=== PATIENT | female | born 1940 | race Caucasian/White ===

== ENCOUNTER 2019-06-06 12:55 | Outpatient (CLI) | payer MEDICARE, OTHER, SELFPAY ==
[2019-06-06 13:19] VITALS: BP 124/75; PULSE 73; RESP 16; TEMP 36.5; O2SAT 97
[2019-06-06] MEDS: denosumab 60 mg SDV SUBCUT (13:19)
[2019-06-06 13:21] VITALS: BP 141/75; PULSE 75; RESP 16; TEMP 36.6
== END 2019-06-06 12:56 | disposition home or self-care (01) ==
LOC: RHEOACUTE 12:58
PROVIDERS: Family Provider Nurse Practitioner Family; Visit Provider Internal Medicine Rheumatology
DX: M81.0 Age-related osteoporosis without current pathological fracture (principal)
CPT/HCPCS: 96372; J0897

== ENCOUNTER 2019-07-11 15:31 | Outpatient (CLI) | payer MEDICARE, OTHER, SELFPAY ==
--- NOTE | 2019-07-11 15:41 | CT_ITS ---
WS: [id number] CT NECK TECHNIQUE: Contrast-enhanced CT of the neck with coronal and sagittal reformatted images. CLINICAL INFORMATION: CHRONIC SORE THROAT COMPARISON: None. DLP: 1094.[address] scans at [facility] use at least one of these dose optimization techniques: automat ed exposure control; mA and/or kV adjustment per patient size (includes targeted exams where dose is matched to clinical indication); or iterative reconstruction. FINDINGS: Images degraded by extensive dental artifact. Submandibular glands are normal. Normal parotid glands. Normal parapharyngeal fat. Tongue base appears normal where visualized. No evidence of supraglottic or glottic mass. Normal piriform sinuses. Subglottic airway is patent. Emphysematous changes in the l rosita apices. Unremarkable thyroid gland. Parathyroid surgical clips. No cervical lymphadenopathy. Mild mucosal thickening right mastoid tip. Paranasal sinuses are well ae rated. Slight anterolisthesis C3 on C4. Moderate spondylitic changes cervical spine. CT/CT neck w con* [id number] IMPRESSION: 1. Salivary glands are normal. 2. No cervical lymphadenopathy. 3. No evidence of supraglottic or glottic mass. 4. Prior parathyroid surgical clips. 5. Mild mucosal thickening right mastoid tip. 6. Images degraded at the tongue base due to extensive dental artifact. 7. Moderate spondylitic changes cervical spine.
[2019-07-11] MEDS: iohexol 300 mg/mL 100 mL Btl IV (16:15)
[2019-07-11 16:25] LABS: Blood Urea Nitrogen 17 mg/dL (8-23)
== END 2019-07-11 15:32 | disposition home or self-care (01) ==
LOC: RADWPI 15:38
PROVIDERS: Family Provider Nurse Practitioner Family; PCP Nurse Practitioner; Visit Provider Specialist
DX: J31.2 Chronic pharyngitis (principal); M47.892 Other spondylosis, cervical region
CPT/HCPCS: 70491; 82565; 84520; Q9967

== ENCOUNTER → 2019-09-03 14:12 | Outpatient (BNVA) | payer MEDICARE, OTHER, SELFPAY | PROVIDERS: Family Provider Nurse Practitioner Family; Visit Provider Specialist | DX: G31.83 Neurocognitive disorder with Lewy bodies (principal); F02.80 Dementia in other diseases classified elsewhere, unspecified severity, without behavioral disturbance, psychotic disturbance, mood disturbance, and anxiety; Z87.891 Personal history of nicotine dependence | CPT/HCPCS: 96116; 99214 ==

== ENCOUNTER 2020-01-08 14:52 | Outpatient (CLI) | payer MEDICARE, OTHER, SELFPAY ==
--- NOTE | 2020-01-08 15:00 | XR_ITS ---
WS: [id number] SCREENING DEXA SCAN [place] CLINICAL INFORMATION: AGE-RELATED OSTEOPOROSIS WITHOUT CURRENT PATHOLOGICAL FRACTU COMPARISON: January 16, 2019 FINDINGS: The L1-L4 bone mineral density measures 0.845 g/cm2. This corresponds to a T score score of -2.8 and Z score of -0.7. Left femoral neck bone mineral density measures 0.721 g/cm2. This corresponds to a T score of -2.3 an d Z score of -0.1. Right femoral neck bone mineral density measures 0.730 g/cm2. This corresponds to a T score -2.2of an d Z score of 0.0. Mean femoral neck bone mineral density measures 0.725 g/cm2. This corresponds to a T score of -2.2 an d Z score of 0.0. XR/XR DEXA axial skeleton* 40340 IMPRESSION: Osteoporosis Patient's FRAX calculated 10 year probability for major osteoporotic fracture i s 22.2 % and osteoporotic hip fracture is 6.7%.
== END 2020-01-08 14:53 | disposition home or self-care (01) ==
LOC: RADWPI 14:57
PROVIDERS: Family Provider Nurse Practitioner Family; PCP Nurse Practitioner; Visit Provider Nurse Practitioner
DX: M81.0 Age-related osteoporosis without current pathological fracture (principal)
CPT/HCPCS: 77080

== ENCOUNTER → 2021-03-01 08:55 | Outpatient (BNVA) | payer MEDICARE, OTHER, SELFPAY | PROVIDERS: Family Provider Nurse Practitioner Family; PCP Nurse Practitioner; Visit Provider Internal Medicine | DX: Z79.899 Other long term (current) drug therapy (principal); M81.0 Age-related osteoporosis without current pathological fracture | CPT/HCPCS: 36415; 80053; 82306; 85025; 85651; 86140 ==

== ENCOUNTER → 2021-03-08 10:31 | Outpatient (BNVA) | payer MEDICARE, OTHER, SELFPAY | PROVIDERS: Family Provider Nurse Practitioner Family; PCP Nurse Practitioner; Visit Provider Internal Medicine | DX: M81.0 Age-related osteoporosis without current pathological fracture (principal) | CPT/HCPCS: 99214 ==

== ENCOUNTER 2021-03-22 12:24 | Outpatient (CLI) | payer MEDICARE, OTHER, SELFPAY ==
[2021-03-22 12:56] VITALS: BP 144/88; PULSE 98; RESP 18; TEMP 36.5; O2SAT 97
[2021-03-22] MEDS: denosumab 60 mg SDV SUBCUT (13:03)
[2021-03-22 13:08] VITALS: BP 131/81; PULSE 89; RESP 18; TEMP 36.4; O2SAT 97
== END 2021-03-22 12:25 | disposition home or self-care (01) ==
PROVIDERS: PCP Nurse Practitioner; Referring Provider Internal Medicine; Visit Provider Internal Medicine
DX: M81.0 Age-related osteoporosis without current pathological fracture (principal)
CPT/HCPCS: 96372; J0897

== ENCOUNTER 2021-07-05 06:00 | Outpatient (RCR) | payer MEDICARE, OTHER, SELFPAY | END 2021-07-05 23:59 | disposition home or self-care (01) | LOC: GPT 06:00 | PROVIDERS: PCP Nurse Practitioner; Referring Provider Nurse Practitioner; Visit Provider Nurse Practitioner | DX: R29.6 Repeated falls (principal); R09.02 Hypoxemia | CPT/HCPCS: 97110; 97162 ==

== ENCOUNTER 2021-07-06 06:00 | Outpatient (RCR) | payer MEDICARE, OTHER, SELFPAY | END 2021-08-05 23:59 | disposition home or self-care (01) | LOC: GPT 06:00 | PROVIDERS: PCP Nurse Practitioner; Referring Provider Nurse Practitioner; Visit Provider Nurse Practitioner | DX: M62.81 Muscle weakness (generalized) (principal) | CPT/HCPCS: 97110 ==

== ENCOUNTER 2021-08-06 06:00 | Outpatient (RCR) | payer MEDICARE, OTHER, SELFPAY | END 2021-09-04 23:59 | disposition home or self-care (01) | LOC: GPT 06:00 | PROVIDERS: PCP Nurse Practitioner; Referring Provider Nurse Practitioner; Visit Provider Nurse Practitioner | DX: M62.81 Muscle weakness (generalized) (principal); R29.6 Repeated falls; R09.02 Hypoxemia | CPT/HCPCS: 97110; 97112 ==

== ENCOUNTER 2021-09-05 | Outpatient (RCR) | payer MEDICARE, OTHER, SELFPAY | END 2021-10-05 23:59 | disposition home or self-care (01) | LOC: GPT | PROVIDERS: PCP Nurse Practitioner; Referring Provider Nurse Practitioner; Visit Provider Nurse Practitioner | DX: M62.81 Muscle weakness (generalized) (principal); R29.6 Repeated falls; R09.02 Hypoxemia | CPT/HCPCS: 97110; 97112; 97530 ==

== ENCOUNTER 2021-09-23 06:00 | Outpatient (RCR) | payer MEDICARE, OTHER, SELFPAY | END 2021-10-05 23:59 | disposition home or self-care (01) | LOC: GST 06:00 | PROVIDERS: PCP Nurse Practitioner; Referring Provider Nurse Practitioner; Visit Provider Nurse Practitioner | DX: R13.10 Dysphagia, unspecified (principal) | CPT/HCPCS: 92526; 92610 ==

== ENCOUNTER 2021-10-06 06:00 | Outpatient (RCR) | payer MEDICARE, OTHER, SELFPAY | END 2021-11-04 23:59 | disposition home or self-care (01) | LOC: GST 06:00 | PROVIDERS: PCP Nurse Practitioner; Referring Provider Nurse Practitioner; Visit Provider Nurse Practitioner | DX: R13.10 Dysphagia, unspecified (principal) | CPT/HCPCS: 92526 ==

== ENCOUNTER 2021-10-06 06:00 | Outpatient (RCR) | payer MEDICARE, OTHER, SELFPAY | END 2021-11-04 23:59 | disposition home or self-care (01) | LOC: GPT 06:00 | PROVIDERS: PCP Nurse Practitioner; Referring Provider Nurse Practitioner; Visit Provider Nurse Practitioner | DX: R29.6 Repeated falls (principal); R09.02 Hypoxemia | CPT/HCPCS: 97110; 97112 ==

== ENCOUNTER 2021-10-13 13:08 | Outpatient (CLI) | payer MEDICARE, OTHER, SELFPAY ==
[2021-10-13 13:44] LABS: Erythrocyte Sedimentation Rate 22 mm/hr (0-15)
[2021-10-13 13:46] LABS: Basophils # 0.1 10^3/uL (0.0-0.1); Basophils % 0.8 %; Eosinophils # 0.4 10^3/uL (0.0-0.8); Eosinophils % 5.5 %; Hematocrit 46.4 % (37.0-47.0); Hemoglobin 15.8 g/dL (11.5-15.3); Lymphocytes # 1.6 10^3/uL (0.8-4.8); Lymphocytes % 23.1 %; Mean Corpuscular HGB Conc 34.1 g/dL (30.0-36.0); Mean Corpuscular Hemoglobin 32.4 pg (28.0-34.0); Mean Corpuscular Volume 95.1 fl (81-99); Monocytes # 0.7 10^3/uL (0.2-0.9); Monocytes % 10.1 %; Neutrophils # 4.25 10^3/uL (1.8-7.7); Neutrophils % 59.9 %; Nucleated Red Blood Cells % 0 %; Platelet Count 349 10^3/cmm (130-400); Red Blood Count 4.88 10^6/uL (4.1-5.3); Red Cell Distribution Width 12.8 % (12.1-15.1); White Blood Count 7.1 10^3/uL (4.0-10.0)
[2021-10-13 14:13] LABS: Alanine Aminotransferase 33 U/L (0-33); Albumin Level 4.4 g/dL (3.5-5.2); Alkaline Phosphatase 127 IU/L (35-105); Aspartate Amino Transferase 30 U/L (0-32); Blood Urea Nitrogen 18 mg/dL (8-23); C Reactive Protein 8.5 mg/L (0.0-4.9); Calcium 9.5 mg/dL (8.5-10.5); Carbon Dioxide 22 mmol/L (22-29); Chloride 100 mmol/L (98-107); Globulin 2.8 g/dL (1.3-4.6); Glucose 93 mg/dL (65-115); Osmolality Calculated 282 mOsm/kg (285-295); Sodium 135 mmol/L (136-145); Total Bilirubin 0.2 mg/dL (0.15-1.2); Total Protein 7.2 g/dL (6.6-8.7)
[2021-10-13 14:14] LABS: Anion Gap 17.2 (5-19); Potassium 4.2 mmol/L (3.5-5.1)
[2021-10-13 14:28] LABS: 25 Hydroxy Vitamin D 41 ng/mL (30-100)
[2021-10-13 14:33] VITALS: BP 136/82; PULSE 89; RESP 18; TEMP 36.5; O2SAT 95
[2021-10-13] MEDS: denosumab 60 mg SDV SUBCUT (14:39)
[2021-10-13 14:47] VITALS: BP 149/95; PULSE 93; RESP 18; TEMP 36.6; O2SAT 94
== END 2021-10-13 13:09 | disposition home or self-care (01) ==
PROVIDERS: PCP Nurse Practitioner; Referring Provider Internal Medicine; Visit Provider Internal Medicine
DX: M81.0 Age-related osteoporosis without current pathological fracture (principal); Z79.899 Other long term (current) drug therapy
CPT/HCPCS: 36415; 80053; 82306; 85025; 85651; 86140; 96372; J0897

== ENCOUNTER 2022-07-05 06:00 | Outpatient (RCR) | payer MEDICARE, OTHER, SELFPAY | END 2022-07-05 23:59 | disposition home or self-care (01) | LOC: GPT 06:00 | PROVIDERS: PCP Nurse Practitioner; Visit Provider Neurological Surgery | DX: M47.27 Other spondylosis with radiculopathy, lumbosacral region (principal); M54.59 Other low back pain | CPT/HCPCS: 97110; 97112; 97162 ==

== ENCOUNTER 2022-07-06 06:00 | Outpatient (RCR) | payer MEDICARE, OTHER, SELFPAY | END 2022-08-05 23:59 | disposition home or self-care (01) | LOC: GPT 06:00 | PROVIDERS: PCP Nurse Practitioner; Visit Provider Neurological Surgery | DX: M47.26 Other spondylosis with radiculopathy, lumbar region (principal) | CPT/HCPCS: 97110; 97140; 97535 ==

== ENCOUNTER 2022-11-13 09:32 | Outpatient (CLI) | payer MEDICARE, OTHER, SELFPAY ==
[2022-11-13 10:19] LABS: Blood Urea Nitrogen 13 mg/dL (8-23)
[2022-11-13 11:45] LABS: Vancomycin Trough 20.6 ug/mL (10-15)
== END 2022-11-13 09:33 | disposition home or self-care (01) ==
PROVIDERS: PCP Nurse Practitioner; Visit Provider Nurse Practitioner
DX: L02.31 Cutaneous abscess of buttock (principal)
CPT/HCPCS: 80202; 82565; 84520

== ENCOUNTER 2022-11-21 14:35 | Outpatient (CLI) | payer MEDICARE, OTHER, SELFPAY ==
[2022-11-21 15:10] LABS: Basophils % 0.5 %; Eosinophils # 0.5 10^3/uL (0.0-0.8); Eosinophils % 13.1 %; Hemoglobin 11.9 g/dL (11.5-15.3); Lymphocytes % 23.6 %; Mean Corpuscular HGB Conc 32.2 g/dL (30.0-36.0); Mean Corpuscular Volume 99.5 fl (81-99); Mean Platelet Volume 9.8 fL (7.4-10.4); Monocytes # 0.4 10^3/uL (0.2-0.9); Monocytes % 10.8 %; Neutrophils % 51.8 %; Nucleated Red Blood Cells % 0 %; Platelet Count 179 10^3/cmm (130-400); Red Blood Count 3.72 10^6/uL (4.1-5.3); Red Cell Distribution Width 13.2 % (12.1-15.1); White Blood Count 4.1 10^3/uL (4.0-10.0)
[2022-11-21 15:36] LABS: Anion Gap 13.5 (5-19); Blood Urea Nitrogen 10 mg/dL (8-23); Calcium 8.5 mg/dL (8.5-10.5); Carbon Dioxide 24 mmol/L (22-29); Chloride 104 mmol/L (98-107); Glucose 94 mg/dL (65-115); Osmolality Calculated 285 mOsm/kg (285-295); Potassium 3.5 mmol/L (3.5-5.1); Sodium 138 mmol/L (136-145)
== END 2022-11-21 14:36 | disposition home or self-care (01) ==
LOC: LAB 14:38
PROVIDERS: PCP Nurse Practitioner; Visit Provider Nurse Practitioner
DX: Z01.89 Encounter for other specified special examinations (principal)
CPT/HCPCS: 80048; 85025

== ENCOUNTER 2024-02-06 06:30 | Outpatient (RCR) | payer MEDICARE, OTHER, SELFPAY | END 2024-03-07 23:59 | disposition home or self-care (01) | LOC: GPT 06:30 | PROVIDERS: Visit Provider Nurse Practitioner | DX: R42 Dizziness and giddiness (principal) | CPT/HCPCS: 97162 ==

== ENCOUNTER 2024-03-08 06:00 | Outpatient (RCR) | payer MEDICARE, OTHER, SELFPAY | END 2024-04-06 23:59 | disposition home or self-care (01) | LOC: GPT 06:00 | PROVIDERS: Visit Provider Nurse Practitioner | DX: R42 Dizziness and giddiness (principal) | CPT/HCPCS: 97112; 97140 ==

== ENCOUNTER 2024-05-08 06:30 | Outpatient (RCR) | payer MEDICARE, OTHER, SELFPAY | END 2024-06-07 23:59 | disposition home or self-care (01) | LOC: GPT 06:30 | PROVIDERS: Visit Provider Nurse Practitioner | DX: R42 Dizziness and giddiness (principal) | CPT/HCPCS: 97110; 97112; 97164 ==

== ENCOUNTER 2024-06-08 06:00 | Outpatient (RCR) | payer MEDICARE, OTHER, SELFPAY | END 2024-07-05 23:59 | disposition home or self-care (01) | LOC: GPT 06:00 | PROVIDERS: Visit Provider Nurse Practitioner | DX: R42 Dizziness and giddiness (principal) | CPT/HCPCS: 97110; 97112; 97530 ==

== ENCOUNTER 2024-07-06 06:00 | Outpatient (RCR) | payer MEDICARE, OTHER, SELFPAY | END 2024-08-05 23:59 | disposition home or self-care (01) | LOC: GPT 06:00 | PROVIDERS: Visit Provider Physician Assistant | DX: S52.592D Other fractures of lower end of left radius, subsequent encounter for closed fracture with routine healing (principal); X58.XXXD Exposure to other specified factors, subsequent encounter | CPT/HCPCS: 97110; 97140; 97162; 97530 ==

== ENCOUNTER 2024-07-06 06:00 | Outpatient (RCR) | payer MEDICARE, OTHER, SELFPAY | END 2024-08-05 23:59 | disposition home or self-care (01) | LOC: GPT 06:00 | PROVIDERS: Visit Provider Nurse Practitioner | DX: R42 Dizziness and giddiness (principal) | CPT/HCPCS: 97110; 97112 ==

== ENCOUNTER 2024-08-06 05:00 | Outpatient (RCR) | payer MEDICARE, OTHER, SELFPAY | END 2024-08-20 07:54 | disposition home or self-care (01) | LOC: GPT 05:00 | PROVIDERS: Visit Provider Physician Assistant | DX: S52.592D Other fractures of lower end of left radius, subsequent encounter for closed fracture with routine healing (principal); X58.XXXD Exposure to other specified factors, subsequent encounter | CPT/HCPCS: 97110; 97112; 97140; 97164 ==

== ENCOUNTER 2024-12-06 05:00 | Outpatient (RCR) | payer MEDICARE, OTHER, SELFPAY | END 2025-01-05 23:59 | disposition home or self-care (01) | LOC: SPT 05:00 | DX: S52.592D Other fractures of lower end of left radius, subsequent encounter for closed fracture with routine healing (principal); X58.XXXD Exposure to other specified factors, subsequent encounter | CPT/HCPCS: 97110; 97112; 97161 ==

== ENCOUNTER 2025-01-06 05:00 | Outpatient (RCR) | payer MEDICARE, OTHER, SELFPAY | END 2025-02-04 23:59 | disposition home or self-care (01) | LOC: SPT 05:00 | DX: S72.001D Fracture of unspecified part of neck of right femur, subsequent encounter for closed fracture with routine healing (principal); X58.XXXD Exposure to other specified factors, subsequent encounter | CPT/HCPCS: 97110; 97530 ==